=== PATIENT | female | born 1935 | race Caucasian/White ===

== ENCOUNTER 2024-11-21 01:16 | Emergency (ER) | payer BC, OTHER ==
[2024-11-21] MEDS ORDERED: PROMETHAZINE 25 MG TABLET ONE (03:13)
[2024-11-21] MEDS ORDERED: HYDROCODONE/APAP 5/325 MG TAB ONE (03:14)
--- NOTE | 2024-11-21 05:45 | ER ---
Nurse's Notes [facility] Name: Irina Stringer Age: 88 yrs Sex: Female : 1935 Arrival Date: 11/21/2024 Time: 01:16 Bed 14 Private MD: Diagnosis: Left distal radius fracture without displacement, acute fall at home, right buttock and back contusion Presentation: 11/21 01:20 Chief complaint: EMS states: patient fell trying to run from a bat. Coronavirus screen: kj2 Client denies travel out of the [place] in the last 14 days. Ebola Screen: No symptoms or risks identified at this time. Initial Sepsis Screen: Does the patient meet any 2 criteria? No. Patient's initial sepsis screen is negative. Does the patient have a suspected source of infection? No. Patient's initial sepsis screen is negative. Risk Assessment: Do you want to hurt yourself or someone else? Patient reports no desire to harm self or others. Onset of symptoms was November 21, 2024. 01:20 Method Of Arrival: EMS: [facility] kj2 01:20 Acuity: SABRINA 3 kj2 Triage Assessment: 01:20 General: Appears in no apparent distress. uncomfortable, Behavior is calm, cooperative. kj2 Pain: Complains of pain in left wrist, right hip Pain currently is 7 out of 10 on a pain scale. Neuro: Level of Consciousness is awake, alert, Oriented to person, place, time, situation. Cardiovascular: Patient's skin is warm and dry. Respiratory: Airway is patent Respiratory effort is unlabored. GI: No signs and/or symptoms were reported involving the gastrointestinal system. : No signs and/or symptoms were reported regarding the genitourinary system. Historical: - Allergies: 01:20 Cipro; kj2 - PMHx: 01:20 Congestive heart failure; Hypertensive disorder; kj2 - Immunization history:: Adult Immunizations unknown. - Infectious Disease History:: Denies. - Social history:: Smoking status: Patient denies any tobacco usage or history of. - Family history:: not pertinent. Screenin:20 [facility] ED Fall Risk Assessment (Adult) History of falling in the last 3 months, kj2 including since admission Yes- single mechanical fall (1 pt) Confusion or Disorientation No (0 pts) Intoxicated or Sedated No (0 pts) Impaired Gait Yes (1 pt) Mobility Assist Device Used No (0 pt) Altered Elimination No (0 pt) Score/Fall Risk Level 0 - 2 = Low Risk Maintained a safe environment, Hourly rounding (assess needs \T\ fall precautionary measures) done. Abuse screen: Denies threats or abuse. Denies injuries from another. Nutritional screening: No deficits noted. Tuberculosis screening: No symptoms or risk factors identified. Assessment: 01:20 General: see triage assessment. kj2 02:30 Reassessment: Patient appears in no apparent distress at this time. Patient and/or kj2 family updated on plan of care and expected duration. Pain level reassessed. Patient is alert, oriented x 3, equal unlabored respirations, skin warm/dry/pink. 03:30 Reassessment: Patient appears in no apparent distress at this time. Patient and/or kj2 family updated on plan of care and expected duration. Pain level reassessed. Patient is alert, oriented x 3, equal unlabored respirations, skin warm/dry/pink. 04:30 Reassessment: Patient appears in no apparent distress at this time. Patient and/or kj2 family updated on plan of care and expected duration. Pain level reassessed. Patient is alert, oriented x 3, equal unlabored respirations, skin warm/dry/pink. 06:01 Reassessment: Patient appears in no apparent distress at this time. Patient and/or kj2 family updated on plan of care and expected duration. Pain level reassessed. Patient is alert, oriented x 3, equal unlabored respirations, skin warm/dry/pink. Vital Signs: 01:20 BP 150 / 55; Pulse 79; Resp 18; Pulse Ox 100% ; Weight 70.76 kg; Height 5 ft. 3 in. ; kj2 02:29 BP 133 / 54; Pulse 75; Resp 18; Temp 97.9; Pulse Ox 95% ; kj2 03:30 BP 136 / 56; Pulse 72; Resp 18; Pulse Ox 100% on R/A; kj2 04:30 BP 138 / 62; Pulse 70; Resp 18; Pulse Ox 100% on R/A; kj2 05:45 BP 130 / 60; Pulse 68; Resp 18; Pulse Ox 100% ; kj2 01:20 Body Mass Index 27.63 (70.76 kg, 160.02 cm) kj2 [place] Coma Score: 19:08 Eye Response: spontaneous(4). Motor Response: obeys commands(6). Verbal Response: sp4 oriented(5). Total: 15. ED Course: 01:20 Arm band placed on Patient placed in an exam room, on a stretcher. kj2 01:20 Patient has correct armband on for positive identification. Placed in gown. Bed in low kj2 position. Call light in reach. Provided Education on: call light. 01:28 Patient arrived in ED. ha1 02:14 Digna Mckinnon, RN is Primary Nurse. kj2 02:23 Triage completed. kj2 02:30 Assisted to bedside commode. kj2 02:56 Heri Messina MD is Attending Physician. sp4 04:09 Hand Left 3 View XRAY In Process Unspecified. EDMS 04:09 Forearm Right XRAY In Process Unspecified. EDMS 04:09 Pelvis XRAY In Process Unspecified. EDMS 04:09 Femur Right XRAY In Process Unspecified. EDMS 05:42 Sukumar Dennis MD is Referral Physician. sp4 06:05 No provider procedures requiring assistance completed. Patient did not have IV access kj2 during this emergency room visit. Administered Medications: 03:19 Drug: HYDROcodone-acetaminophen PO 5 mg-325 mg 2 tabs PO once Route: PO; kj2 06:06 Follow up: Response: No adverse reaction kj2 06:06 Follow up: Response: No adverse reaction kj2 03:19 Drug: Promethazine PO 25 mg PO once Route: PO; kj2 06:06 Follow up: Response: No adverse reaction kj2 Medication: 02:28 VIS not applicable for this client. kj2 Outcome: 05:44 Discharge ordered by . sp4 06:05 Discharged to home ambulatory, kj2 06:05 Condition: stable 06:05 Discharge instructions given to patient, Instructed on discharge instructions, follow up and referral plans. Demonstrated understanding of instructions, follow-up care, 06:44 Patient left the ED. kj2 Signatures: Dispatcher [employer] Dayanna Mosquera RN RN ha1 Heri Messina MD MD sp4 Digna Mckinnon RN RN kj2
--- NOTE | 2024-11-21 05:45 | EDPHYS ---
Physician Documentation [facility] Name: Irina Stringer Age: 88 yrs Sex: Female : 1935 Arrival Date: 11/21/2024 Time: 01:16 Bed 14 Private MD: ED Physician Heri Messina HPI: 11/21 02:56 This 88 yrs old Female presents to ER via EMS with complaints of Fall Injury. sp4 19:08 88-year-old female presents with complaint of acute fall and injury to the left wrist. sp4 Also complains of contusion to the right buttock . Historical: - Allergies: 01:20 Cipro; kj2 - PMHx: 01:20 Congestive heart failure; Hypertensive disorder; kj2 - Immunization history:: Adult Immunizations unknown. - Infectious Disease History:: Denies. - Social history:: Smoking status: Patient denies any tobacco usage or history of. - Family history:: not pertinent. ROS: 19:08 Constitutional: Negative for fever, chills, and weight loss, positive for acute fall, sp4 positive for left wrist pain and right buttock pain 19:08 All other systems are negative, Exam: 19:08 Constitutional: This is a well developed, well nourished patient who is awake, alert, sp4 and in no acute distress. Head/Face: Normocephalic, atraumatic. Eyes: Pupils equal round and reactive to light, extra-ocular motions intact. Lids and lashes normal. Conjunctiva and sclera are not injected. Cornea within normal limits. Periorbital areas with no swelling, redness, or edema. ENT: Nares patent. No nasal discharge, no septal abnormalities noted. Tympanic membranes are normal and external auditory canals are clear. Oropharynx with no redness, swelling, or masses, exudates, or evidence of obstruction, uvula midline. Mucous membranes moist. Neck: Trachea midline, no thyromegaly or masses palpated, and no cervical lymphadenopathy. Supple, full range of motion without nuchal rigidity, or vertebral point tenderness. Chest/axilla: Normal chest wall appearance and motion. Nontender with no deformity. No lesions are appreciated. Cardiovascular: Regular rate and rhythm with a normal S1 and S2. No gallops, murmurs, or rubs. Normal PMI, no JVD. No pulse deficits. Respiratory: Lungs have equal breath sounds bilaterally, clear to auscultation and percussion. No rales, rhonchi or wheezes noted. No increased work of breathing, no retractions or nasal flaring. Abdomen/GI: Soft, with normal bowel sounds. No distension or tympany. No guarding or rebound. No evidence of tenderness throughout. Back: No spinal tenderness. No costovertebral tenderness. Skin: Warm, dry with normal turgor. Normal color with no rashes, no lesions, and no evidence of cellulitis. MS/ Extremity: Pulses equal, no cyanosis. Neurovascular intact. Full, normal range of motion. Positive for left wrist swelling and discoloration without deformity Neuro: Awake and alert, GCS 15, oriented to person, place, time, and situation. Cranial nerves II-XII grossly intact. Motor strength 5/5 in all extremities. Sensory grossly intact. Psych: Awake, alert, with orientation to person, place and time. Behavior, mood, and affect are within normal limits Vital Signs: 01:20 BP 150 / 55; Pulse 79; Resp 18; Pulse Ox 100% ; Weight 70.76 kg; Height 5 ft. 3 in. ; kj2 02:29 BP 133 / 54; Pulse 75; Resp 18; Temp 97.9; Pulse Ox 95% ; kj2 03:30 BP 136 / 56; Pulse 72; Resp 18; Pulse Ox 100% on R/A; kj2 04:30 BP 138 / 62; Pulse 70; Resp 18; Pulse Ox 100% on R/A; kj2 05:45 BP 130 / 60; Pulse 68; Resp 18; Pulse Ox 100% ; kj2 01:20 Body Mass Index 27.63 (70.76 kg, 160.02 cm) kj2 [place] Coma Score: 19:08 Eye Response: spontaneous(4). Motor Response: obeys commands(6). Verbal Response: sp4 oriented(5). Total: 15. Procedures: 05:41 Splinting: Splint applied to dorsal aspect of left forearm, left wrist, left hand and sp4 palmar aspect of left forearm using Orthoglass splint, applied by myself. Examined by me, post splint application: neurovascular intact, 2+ distal pulses palpable, brisk capillary refill noted, Patient tolerated well, Positive for sugar-tong splint application left forearm wrist and hand. MDM: 03:02 Medical Screening Exam initiated sp4 06:09 ED course: EXAM: XR Right Forearm, 2 Views CLINICAL HISTORY: The patient is 88 years sp4 old and is Female; Forearm pain. TECHNIQUE: Two views of the right forearm. COMPARISON: No relevant prior studies available. FINDINGS: Bones/joints: Unremarkable. No acute fracture. No dislocation. Soft tissues: Mild soft tissue swelling in the distal forearm. IMPRESSION: Mild soft tissue swelling in the distal forearm. Electronically signed by: Mylene Amanda MD 11/21/2024 06:02 AM. 19:08 Differential diagnosis: abrasion, contusion, fracture, sprain, strain. Data reviewed: sp4 vital signs, nurses notes, radiologic studies, plain films. 19:12 ED course: EXAM: XR Left Hand Complete, 3 or More Views CLINICAL HISTORY: The patient sp4 is 88 years old and is Female; Left hand pain. TECHNIQUE: Three views of the left hand. COMPARISON: No relevant prior studies available. FINDINGS: Bones/joints: Comminuted distal radius fracture, not significantly displaced. Bone demineralization. Degenerative changes in the basal joint. No dislocation. Soft tissues: Soft tissue swelling. No radiopaque foreign body. IMPRESSION: Comminuted distal radius fracture, not significantly displaced. Electronically signed by: Mylene Amanda MD. ED course: CLINICAL HISTORY: The patient is 88 years old and is Female; Right femur pain. TECHNIQUE: Two views of the right femur. COMPARISON: No relevant prior studies available. FINDINGS: Bones/joints: No acute femur fracture visualized. Degenerative changes in the knee. No dislocation. Soft tissues: Unremarkable. IMPRESSION: No acute femur fracture visualized. Electronically signed by: Mylene Amanda MD . ED course: CLINICAL HISTORY: The patient is 88 years old and is Female; Forearm pain. TECHNIQUE: Two views of the right forearm. COMPARISON: No relevant prior studies available. FINDINGS: Bones/joints: Unremarkable. No acute fracture. No dislocation. Soft tissues: Mild soft tissue swelling in the distal forearm. IMPRESSION: Mild soft tissue swelling in the distal forearm. Electronically signed by: Mylene Amanda MD . ED course: CLINICAL HISTORY: The patient is 88 years old and is Female; Fall, hip pain. TECHNIQUE: Single frontal view of the pelvis. COMPARISON: No relevant prior studies available. FINDINGS: Bones/joints: Degenerative changes in the left hip. Lower lumbar scoliosis versus positioning artifact. No acute fracture. No dislocation. Soft tissues: Unremarkable. IMPRESSION: Degenerative changes in the left hip. Electronically signed by: Mylene Amanda MD. 11/21 03:01 Order name: Hand Left 3 View XRAY; Complete Time: 19:11 sp4 11/21 03:02 Order name: Forearm Right XRAY; Complete Time: 19:11 sp4 11/21 03:02 Order name: Pelvis XRAY; Complete Time: 19:11 sp4 11/21 03:02 Order name: Femur Right XRAY; Complete Time: 19:11 sp4 11/21 05:47 Order name: Sling; Complete Time: 06:06 sp4 11/21 05:47 Order name: Splint - Sugar Tong - Forearm: applied by MD; Complete Time: 06:06 sp4 Administered Medications: 03:19 Drug: HYDROcodone-acetaminophen PO 5 mg-325 mg 2 tabs PO once Route: PO; kj2 06:06 Follow up: Response: No adverse reaction kj2 06:06 Follow up: Response: No adverse reaction kj2 03:19 Drug: Promethazine PO 25 mg PO once Route: PO; kj2 06:06 Follow up: Response: No adverse reaction kj2 Disposition Summary: 11/21/24 05:44 Discharge Ordered Notes: Please see Orthopedist in 7 days for evaluation of your wrist Location: Home sp4 Problem: new sp4 Symptoms: have improved sp4 Condition: Stable sp4 Diagnosis - Left distal radius fracture without displacement, acute fall at home, right buttock sp4 and back contusion Followup: sp4 - With: Sukumar Dennis MD - When: 7 - 10 days - Reason: Recheck today's complaints Discharge Instructions: - Discharge Summary Sheet sp4 - Radial Fracture Rehab sp4 Forms: - Patient Portal Instructions sp4 Prescriptions: - acetaminophen-codeine 300-60 mg Oral tablet - take 1 tablet ORAL route every 6 hours PRN pain; 20 tablet; Refills: 0, Product sp4 Selection Permitted Signatures: Dispatcher [employer] EDHeri Dozier MD MD sp4 Digna Mckinnon RN RN kj2 Corrections: (The following items were deleted from the chart) 03:02 03:02 Hand Left 3 View+RAD.RAD.BRZ ordered. EDMS EDMS 03:02 03:02 Forearm Right+RAD.RAD.BRZ ordered. EDMS EDMS 03:03 03:03 Pelvis+RAD.RAD.BRZ ordered. EDMS EDMS
--- NOTE | 2024-11-21 06:22 | RAD REPORT ---
EXAM: XR Pelvis, 1 or 2 Views CLINICAL HISTORY: The patient is 88 years old and is Female; Fall, hip pain. TECHNIQUE: Single frontal view of the pelvis. COMPARISON: No relevant prior studies available. FINDINGS: Bones/joints: Degenerative changes in the left hip. Lower lumbar scoliosis versus positioning artifact. No acute fracture. No dislocation. Soft tissues: Unremarkable. IMPRESSION: Degenerative changes in the left hip. Electronically signed by: Mylene Amanda MD 11/21/2024 06:11 AM [facility] [place] Due to temporary technical issues with the PACS/[employer] reporting system, reports are being josé d by the in-house radiologist without review as a courtesy to ensure prompt reporting the interpreting radiologist is fully responsible for the content of the report. Transcribed Date/Time: 11/21/2024 6:21 AM
--- NOTE | 2024-11-21 06:22 | RAD REPORT ---
EXAM: XR Right Femur, 2 Views CLINICAL HISTORY: The patient is 88 years old and is Female; Right femur pain. TECHNIQUE: Two views of the right femur. COMPARISON: No relevant prior studies available. FINDINGS: Bones/joints: No acute femur fracture visualized. Degenerative changes in the knee. No dislocation. Soft tissues: Unremarkable. IMPRESSION: No acute femur fracture visualized. Electronically signed by: Mylene Amanda MD 11/21/2024 06:[address] [facility] [place] Due to temporary technical issues with the PACS/[employer] reporting system, reports are being josé d by the in-house radiologist without review as a courtesy to ensure prompt reporting the interpreting radiologist is fully responsible for the content of the report. Transcribed Date/Time: 11/21/2024 6:21 AM
--- NOTE | 2024-11-21 06:22 | RAD REPORT ---
EXAM: XR Right Forearm, 2 Views CLINICAL HISTORY: The patient is 88 years old and is Female; Forearm pain. TECHNIQUE: Two views of the right forearm. COMPARISON: No relevant prior studies available. FINDINGS: Bones/joints: Unremarkable. No acute fracture. No dislocation. Soft tissues: Mild soft tissue swelling in the distal forearm. IMPRESSION: Mild soft tissue swelling in the distal forearm. Electronically signed by: Mylene Amanda MD 11/21/2024 06:[address] [facility] [place] Due to temporary technical issues with the PACS/[employer] reporting system, reports are being josé d by the in-house radiologist without review as a courtesy to ensure prompt reporting the interpreting radiologist is fully responsible for the content of the report. Transcribed Date/Time: 11/21/2024 6:22 AM
--- NOTE | 2024-11-21 06:23 | RAD REPORT ---
EXAM: XR Left Hand Complete, 3 or More Views CLINICAL HISTORY: The patient is 88 years old and is Female; Left hand pain. TECHNIQUE: Three views of the left hand. COMPARISON: No relevant prior studies available. FINDINGS: Bones/joints: Comminuted distal radius fracture, not significantly displaced. Bone demineralization. Degenerative changes in the basal joint. No dislocation. Soft tissues: Soft tissue swelling. No radiopaque foreign body. IMPRESSION: Comminuted distal radius fracture, not significantly displaced. Electronically signed by: Mylene Amanda MD 11/21/2024 06:10 AM [facility] [place] Due to temporary technical issues with the PACS/[employer] reporting system, reports are being josé d by the in-house radiologist without review as a courtesy to ensure prompt reporting the interpreting radiologist is fully responsible for the content of the report. Transcribed Date/Time: 11/21/2024 6:22 AM
[2024-11-21 06:58] VITALS: TEMP 97.9
[2024-11-21 07:00] VITALS: O2SAT 100
[2024-11-21 07:03] VITALS: BP 130/60
== END 2024-11-21 06:44 | disposition home or self-care (01) ==
LOC: ER 01:16
PROC: 2W3DX1Z Immobilization of Left Lower Arm using Splint (ICD-10-PCS; principal; 2024-11-21)
DX: S52.502A Unspecified fracture of the lower end of left radius, initial encounter for closed fracture (principal); S30.0XXA Contusion of lower back and pelvis, initial encounter; W18.30XA Fall on same level, unspecified, initial encounter; Y92.009 Unspecified place in unspecified non-institutional (private) residence as the place of occurrence of the external cause
CPT/HCPCS: 72170; 99284; Q0169

== ENCOUNTER 2024-11-21 17:51 | Emergency (ER) | payer BC ==
[2024-11-21] MEDS ORDERED: ONDANSETRON 4 MG/2 ML VIAL ONE (18:21)
[2024-11-21] MEDS ORDERED: MORPHINE 2 MG/ML SYR ONE (18:21)
[2024-11-21 18:24] LABS: Absolute Eosinophils 0.1 K/uL (0-0.5); Absolute Lymphocytes (CBC) 1.1 K/uL (0.7-4.9); Absolute Monocytes 0.6 K/uL (0.1-1.3); Absolute Neutrophil 5.1 K/uL (1.8-8.0); Basophils % 0.4 % (0-1.3); Eosinophils % 1.1 % (0-4.4); Hematocrit 36.9 % (36.0-45.0); Hemoglobin 12.5 g/dL (12.0-15.0); Lymphocytes % 16.1 % (15.3-44.8); MCH 29.5 pg (27.0-35.0); MCHC 33.8 g/dL (32.0-36.0); MCV 87.2 fL (80-100); MPV 7.4 fL (7.6-11.3); Monocytes % 8.4 % (3.3-12.3); Platelets 207 thou/uL (152-406); RBC Red Blood Cell Count 4.23 M/uL (3.86-4.86); Red Cell Distribution Width 13.8 % (12.1-15.2)
[2024-11-21 18:25] LABS: PT Prothrombin Time 12.5 SECONDS (9.4-12.5); Protime INR 1.12
[2024-11-21 18:43] LABS: Albumin 3.2 g/dL (3.4-5.0); Albumin/Globulin Ratio 1.1 (1.1-1.8); Anion Gap 10.5 mEq/L (5.0-15.0); Bilirubin Direct 0.4 mg/dL (0-0.2); Bilirubin Indirect, Calculated 0.6 mg/dL (0.2-0.8); Globulin 2.9 g/dL (2.3-3.5); Magnesium 1.9 mg/dL (1.6-2.4); Potassium 3.5 mEq/L (3.5-5.1); Protein, Total 6.1 g/dL (6.4-8.2); Troponin High Sensitivity 8.9 pg/mL (<58.9)
--- NOTE | 2024-11-21 19:13 | RAD REPORT ---
Procedure: Chest Single View HISTORY: Chest pain COMPARISON: none FINDINGS: The lungs appear clear of acute infiltrate. No significant pleural effusion noted. The heart is mildly enlarged. Post surgical changes involve the chest IMPRESSION: No acute abnormality is displayed.
--- NOTE | 2024-11-21 20:13 | RAD REPORT ---
EXAM: Chest Abdomen Pelvis W Cont CLINICAL INDICATION: Chest and abdominal pain TECHNIQUE: CT chest, abdomen and pelvis was performed, with 100 cc Isovue-300 IV contrast, as per de partment protocol. Axial, sagittal and coronal reconstructions were obtained. One or more of the following dose reduction techniques were used: Automated exposure control, adjustment of the mA and/o r kV according to the patient size, and/or iterative reconstruction. Unless otherwise specified, incidental findings do not require dedicated imaging follow-up. [id number]. Oral contrast not given. This limits evaluation of the bowel. COMPARISON: None FINDINGS: The lungs are clear. No mediastinal or hilar lymphadenopathy. Small intimal flap suspected posterior ascending thoracic aorta just below the aortic arch. Adjacent low density probably small amount of intramural hematoma. No pleural effusion.. No pericardial effusion Cholecystectomy. Mild to moderate dilatation of the intrahepatic and extrahepatic biliary tree. The liver otherwise appears unremarkable. Spleen, pancreas, and adrenals appear unremarkable. Bilateral. There is no evidence of diverticulitis No adnexal mass Scoliosis involves the spine. Spondylosis lumbar spine. IMPRESSION: Small intimal flap suspected posterior ascending thoracic aorta just below the aortic arch. Adjacent low density probably small amount of intramural hematoma. Mild to moderate dilatation of the intrahepatic and extrahepatic biliary tree. In an elderly patient status post cholecystectomy this often is physiologic. This should be correlated clinically and with appropriate lab values
--- NOTE | 2024-11-21 21:07 | EDPHYS ---
Physician Documentation [facility] Name: Irina Stringer Age: 88 yrs Sex: Female : 1935 Arrival Date: 11/21/2024 Time: 17:51 Bed 2 Private MD: ED Physician Don Villegas HPI: 11/21 18:10 This 88 yrs old Female presents to ER via EMS with complaints of Chest Pain > 30 y/o. cp 18:10 The patient or guardian reports chest pain that is located primarily in the anterior cp chest wall, bilaterally below breast. 18:10 Onset: today. cp 18:10 The pain radiates to back. The chest pain is described as a pressure. Duration: The patient or guardian reports a single episode, that is still ongoing, but improving. 18:10 Patient returns to ED after being seen yesterday for fall and suffering fracture of cp left wrist from fall. Reports taking prescribed Tylenol with codeine for pain and shortly afterward having severe chest pain today. 19:00 Patient reports HX of aortic aneurysm repair surgery 3-4 years ago by physician at [facility]. Historical: - Allergies: 18:06 Cipro; ko1 - PMHx: 18:06 Congestive heart failure; Hypertensive disorder; ko1 - Immunization history:: Adult Immunizations unknown. - Infectious Disease History:: Denies. - Social history:: Smoking status: Patient denies any tobacco usage or history of. ROS: 18:10 Cardiovascular: Positive for chest pain, cp 18:10 Constitutional: Negative for body aches, chills, fever, poor PO intake, cp 18:10 Eyes: Negative for injury, pain, redness, and discharge, cp 18:10 Respiratory: Negative for cough, shortness of breath, wheezing, 18:10 Abdomen/GI: Positive for abdominal pain, of the upper abdomen, Negative for vomiting, diarrhea, constipation, Exam: 18:12 ECG was reviewed by the Attending Physician. cp 18:15 Constitutional: The patient appears in no acute distress, alert, awake, cp non-diaphoretic, non-toxic, well developed, well nourished, 18:15 Head/Face: Normocephalic, atraumatic. cp 18:15 Eyes: Periorbital structures: appear normal, Conjunctiva: normal, no exudate, no injection, Sclera: no appreciated abnormality, Lids and lashes: appear normal, bilaterally, 18:15 ENT: External ear(s): are unremarkable, Nose: is normal, Mouth: Lips: moist, Oral mucosa: moist, Posterior pharynx: Airway: no evidence of obstruction, patent, 18:15 Chest/axilla: Inspection: normal, 18:15 Cardiovascular: Rate: normal, Rhythm: regular, Edema: is not appreciated, JVD: is not appreciated, 18:15 Respiratory: the patient does not display signs of respiratory distress, Respirations: normal, no use of accessory muscles, no retractions, labored breathing, is not present, Breath sounds: are clear throughout, no decreased breath sounds, no stridor, no wheezing, 18:15 Abdomen/GI: Inspection: abdomen appears normal, Bowel sounds: active, all quadrants, Palpation: soft, in all quadrants, mild abdominal tenderness, in the epigastric area, rebound tenderness, is not appreciated, involuntary guarding, is not appreciated, 18:15 Back: CVA tenderness, is absent, 18:15 Neuro: Orientation: to person, place \T\ time. Mentation: is normal, Cerebellar function: is grossly normal, Motor: moves all fours, strength is normal, Sensation: is normal, Vital Signs: 18:03 BP 134 / 59; Pulse 86; Resp 16; Temp 98; Pulse Ox 99% on R/A; ko1 18:15 BP 147 / 59; Pulse 84; Resp 16; Pulse Ox 96% on R/A; db 21:22 BP 146 / 66; Pulse 83; Resp 16 S; Pulse Ox 95% on R/A; lg3 22:06 Weight 70.76 kg; rv1 23:14 BP 118 / 51; Pulse 80; Resp 18; Pulse Ox 93% on R/A; ay 11/22 00:10 BP 167 / 80; Pulse 94; Resp 17; Pulse Ox 96% on R/A; ay 00:53 BP 155 / 66; Pulse 82; Resp 17 S; Pulse Ox 95% on R/A; lg3 01:13 BP 144 / 62; Pulse 96; Resp 18; Pulse Ox 96% on R/A; ay Amol Coma Score: 11/21 19:37 Eye Response: spontaneous(4). Motor Response: obeys commands(6). Verbal Response: ay oriented(5). Total: 15. MDM: 18:03 Medical Screening Exam initiated cp 19:00 Differential diagnosis: abnormal EKG, acute myocardial infarction, esophagitis, cp pancreatitis, peptic ulcer disease, pneumonia, pneumothorax, pulmonary embolus, stable angina, thoracic aortic disection, unstable angina, choledocholithiasis. 21:10 The patient was not given aspirin in the Emergency Department. Data reviewed: vital cp signs, nurses notes, lab test result(s), EKG, radiologic studies, CT scan, plain films, I have discussed the patient's presentation/case with the attending Emergency Department Physician; and as a result, I will transfer patient. I considered the following discharge prescriptions or medication management in the emergency department Medications were administered in the Emergency Department. See MAR. 21:10 Independent interpretation of the following test(s) in the Emergency Department EKG: cp See my EKG interpretation above. 21:10 Care significantly affected by the following chronic conditions: Hypertension, cp Congestive Heart Failure. Counseling: I had a detailed discussion with the patient and/or guardian regarding the historical points, exam findings, and any diagnostic results supporting the discharge/admit diagnosis, the need to transfer to another facility, [facility] does not immediately have the required specialist. 11/22 00:15 Management of patient was discussed with the following: Quality Checker: DR Dowell, cp cardiothoracic surgery \[facility] who will accept transfer after discussion of findings on CT. Requests patient to be started on Esmolol for blood pressure control. 11/21 18:10 Order name: Basic Metabolic Panel; Complete Time: 18:51 11/21 18:51 Interpretation: Normal except: NA 135; CRE 0.44. 11/21 18:10 Order name: CBC with Diff; Complete Time: 18:51 11/21 18:51 Interpretation: Normal except: MPV 7.4; RM% 74.0. 11/21 18:10 Order name: LFT's; Complete Time: 18:51 11/21 18:51 Interpretation: Normal except: AST 146; ALT 68; ALK 29; BILID 0.4; TP 6.1; ALB 3.2. 11/21 18:10 Order name: Magnesium; Complete Time: 18:51 11/21 18:10 Order name: NT PRO-BNP; Complete Time: 18:51 cp 11/21 18:10 Order name: PT-INR; Complete Time: 18:51 cp 11/21 18:10 Order name: Troponin HS; Complete Time: 18:51 cp 11/21 20:50 Order name: Lipase; Complete Time: 22:35 cp 11/21 22:35 Interpretation: Reviewed. cp 11/21 20:50 Order name: Troponin High Sensitivity; Complete Time: 22:35 cp 11/21 18:10 Order name: XRAY Chest (1 view); Complete Time: 19:43 cp 11/21 19:43 Interpretation: Report review. cp 11/21 18:54 Order name: CT Chest, Abdomen, Pelvis - W/Contrast; Complete Time: 20:48 cp 11/21 20:48 Interpretation: Report reviewed. cp 11/21 18:10 Order name: Cardiac monitoring; Complete Time: 18:13 cp 11/21 18:10 Order name: EKG - Nurse/Tech; Complete Time: 18:13 cp 11/21 18:10 Order name: IV Saline Lock; Complete Time: 18:14 cp 11/21 18:10 Order name: Labs collected and sent; Complete Time: 18:14 cp 11/21 18:10 Order name: O2 Per Protocol; Complete Time: 18:14 cp 11/21 18:10 Order name: O2 Sat Monitoring; Complete Time: 18:14 cp 11/22 00:11 Order name: Misc. Order: target systolic pressure below 140 cp EC/05 18:12 Rate is 83 beats/min. Rhythm is regular. SC interval is prolonged at 202 msec. QRS cp interval is normal. QT interval is normal. T waves are Inverted in lead aVR. Interpreted by me. Reviewed by me. Administered Medications: 18:20 Drug: morphine IVP or IV 2 mg IVP once over 4 mins Route: IVP; Infused Over: 4 mins; db Site: right antecubital; 21:47 Follow up: Response: No adverse reaction ay 18:20 Drug: Ondansetron IVP 4 mg IVP once; over 2 minutes Route: IVP; Site: right antecubital;db 21:47 Follow up: Response: No adverse reaction ay 21:47 Drug: hydrALAZINE IVP 10 mg IVP once; if systolic pressure above 140 Route: IVP; Site: ay right forearm; 23:17 Follow up: Response: No adverse reaction ay 11/22 01:16 Follow up: Response: No adverse reaction ay 00:31 CANCELLED (Physician Discretion): [id number] mcg/kg/min IV at calculated rate See cp Administration Instructions; (Standard concentration 2500 mg / 250 mL D5W); Recommended max rate 300 mcg/kg/min; Titrate 25 mcg/kg/min as often as every 5 minutes to achieve goal (see titration policy); Goal parameter HR less than 100 bpm. 01:18 CANCELLED (Patient Refused): [id number] mg/hr IV at calculated rate See cp Administration Instructions; (Standard concentration 25 mg / 250 mL NS); Recommended max rate 15 mg/hr; Titrate 2.5 mg/hr as often as every 15 minutes to achieve goal (see titration policy); Goal parameter SBP less than 160 mmHg 01:37 Drug: Metoprolol PO 25 mg PO once Route: PO; ay 01:59 Follow up: Response: No adverse reaction ay 01:45 CANCELLED (Physician Discretion): [id number] mg PO once cp 01:53 Not Given (Patient Refused): [id number] mg PO once ay 01:54 Drug: Acetaminophen PO 325 mg PO once {Note: pt stated that 1000mg was too much, then ay 650 mg was too much but finally settled on 325 mg .} Route: PO; :59 Follow up: Response: No adverse reaction ay Disposition: 02:18 Co-signature as Attending Physician, Don Villegas MD I reviewed the patient's care rt provided by the Advanced Practice Provider and agree with the diagnosis and treatment plan. 21:48 Critical Care:. cp Disposition Summary: 11/21/24 21:06 Transfer Ordered Notes: Reason: Higher level of care cp Condition: Stable cp Problem: new cp Symptoms: have improved cp Transfer Location: [facility](11/22/24 00:11) cp Accepting Physician: DR Dowell(11/22/24 02:03) ay Diagnosis - Chest pain, unspecified cp - Aortic Dissection cp - Other acute pancreatitis without necrosis or infection cp Forms: - Medication Reconciliation Form cp - SBAR form cp Critical care time excluding procedures: 21:48 Critical care time: Bedside Care: 5 minutes, Consultation: 30 minutes, Family cp Intervention: 10 minutes. Total time: 45 minutes Signatures: Dispatcher [employer] Magdy Barger PA PA cp Oliver, Ame, RN RN ko1 Kristine Kessler RN RN db Don Villegas MD MD rt Bi Bardales RN RN ay Corrections: (The following items were deleted from the chart) 11/21 18:11 18:11 BASIC METABOLIC PANEL+C.LAB.BRZ ordered. EDID EDMS 18:11 18:11 CBC+H.LAB.BRZ ordered. EDID EDMS 18:11 18:11 HEPATIC FUNCTION+C.LAB.BRZ ordered. EDID EDMS 18:11 18:11 MAGNESIUM+C.LAB.BRZ ordered. EDID EDMS 18:11 18:11 PROBNP+C.LAB.BRZ ordered. EDID EDMS 18:11 18:11 PROTIME (+INR)+COAG.LAB.BRZ ordered. EDID EDMS 18:11 18:11 Troponin High Sensitivity+C.LAB.BRZ ordered. EDID EDMS 18:11 18:11 Chest Single View+RAD.RAD.BRZ ordered. [facility] EDID 22:37 21:06 Doctor cp cp 11/22 00:11 11/21 21:06 [facility] cp cp 11/22 00:11 11/21 22:37 Doctor cp cp 11/22 00:31 00:11 Esmolol IV 50 mcg/kg/min IV at calculated rate See Administration Instructions; cp (Standard concentration 2500 mg / 250 mL D5W); Recommended max rate 300 mcg/kg/min; Titrate 25 mcg/kg/min as often as every 5 minutes to achieve goal (see titration policy); Goal parameter HR less than 100 bpm. ordered. cp :18 00:36 niCARdipine IV 5 mg/hr IV at calculated rate See Administration Instructions; cp (Standard concentration 25 mg / 250 mL NS); Recommended max rate 15 mg/hr; Titrate 2.5 mg/hr as often as every 15 minutes to achieve goal (see titration policy); Goal parameter SBP less than 160 mmHg ordered. cp 01:20 00:11 Doctor cp cp 01:45 01:41 Acetaminophen PO 1000 mg PO once ordered. cp cp 02:03 01:20 DR Magalys peña 21:41 11/21 22:40 Data reviewed: vital signs, nurses notes, lab test result(s), EKG, cp radiologic studies, CT scan, plain films, I have discussed the patient's presentation/case with the attending Emergency Department Physician; and as a result, I will transfer patient, cp 11/22 20:11/21 22:40 The patient was not given aspirin in the Emergency Department. cp cp 11/22 20:11/21:40 I considered the following discharge prescriptions or medication management cp in the emergency department Medications were administered in the Emergency Department. See MAR cp
--- NOTE | 2024-11-21 21:07 | ER ---
Nurse's Notes [facility] Name: Irina Stringer Age: 88 yrs Sex: Female : 1935 Arrival Date: 11/21/2024 Time: 17:51 Bed 2 Private MD: Diagnosis: Chest pain, unspecified;Aortic Dissection;Other acute pancreatitis without necrosis or infection Presentation: 11/21 18:03 Chief complaint: EMS states: patient was here yesterday for a broken arm, received ko1 tylenol #3 for pain, took it today and started having chest pain and her blood pressure dropped down into the 90's systolic. Coronavirus screen: At this time, the client does not indicate any symptoms associated with coronavirus-19. Ebola Screen: No symptoms or risks identified at this time. Initial Sepsis Screen: Does the patient meet any 2 criteria? No. Patient's initial sepsis screen is negative. Does the patient have a suspected source of infection? No. Patient's initial sepsis screen is negative. Risk Assessment: Do you want to hurt yourself or someone else? Patient reports no desire to harm self or others. Onset of symptoms was November 21, 2024. Care prior to arrival: IV initiated. 20 GA, in the right forearm. 18:03 Method Of Arrival: EMS: [facility] ko1 18:03 Acuity: SABRINA 3 ko1 Triage Assessment: 18:06 General: Appears in no apparent distress. Behavior is calm, cooperative, appropriate ko1 for age. Pain: Complains of pain in chest. EENT: No deficits noted. No signs and/or symptoms were reported regarding the EENT system. Neuro: No deficits noted. Cardiovascular: Reports chest pain. Respiratory: No deficits noted. GI: No deficits noted. No signs and/or symptoms were reported involving the gastrointestinal system. : No deficits noted. No signs and/or symptoms were reported regarding the genitourinary system. Derm: No deficits noted. No signs and/or symptoms reported regarding the dermatologic system. Musculoskeletal: No deficits noted. No signs and/or symptoms reported regarding the musculoskeletal system. Historical: - Allergies: 18:06 Cipro; ko1 - PMHx: 18:06 Congestive heart failure; Hypertensive disorder; ko1 - Immunization history:: Adult Immunizations unknown. - Infectious Disease History:: Denies. - Social history:: Smoking status: Patient denies any tobacco usage or history of. Screenin:07 [facility] ED Fall Risk Assessment (Adult) History of falling in the last 3 months, ko1 including since admission Yes- single mechanical fall (1 pt) Confusion or Disorientation No (0 pts) Intoxicated or Sedated No (0 pts) Impaired Gait No (0 pts) Mobility Assist Device Used No (0 pt) Altered Elimination No (0 pt) Score/Fall Risk Level 0 - 2 = Low Risk Oriented to surroundings, Maintained a safe environment, Educated pt \T\ family on fall prevention, incl call for assistance when getting out of bed, Assessed \T\ reinforced patient's understanding of fall precautions, Hourly rounding (assess needs \T\ fall precautionary measures) done. Abuse screen: Denies threats or abuse. Denies injuries from another. Nutritional screening: No deficits noted. Tuberculosis screening: No symptoms or risk factors identified. Assessment: 18:07 Reassessment: see triage note. Pain: Pain does not radiate. Pain began gradually. ko1 18:27 Reassessment: Patient appears in no apparent distress at this time. Patient and/or db family updated on plan of care and expected duration. Pain level reassessed. Patient is alert, oriented x 3, equal unlabored respirations, skin warm/dry/pink. General: Appears in no apparent distress. comfortable, Behavior is calm, cooperative. Neuro: Level of Consciousness is awake, alert, obeys commands, Oriented to person, place, time, situation. Musculoskeletal: Circulation, motion, and sensation intact. Capillary refill < 3 seconds, PATIENT ARRIVED WITH CAST AND SLING TO LEFT ARM. 19:37 General: Appears in no apparent distress. comfortable, Behavior is calm, cooperative. ay Pain: Complains of pain in chest Pain currently is 5 out of 10 on a pain scale. Neuro: Level of Consciousness is awake, alert, obeys commands, Oriented to person, place, time, situation. Cardiovascular: Capillary refill < 3 seconds. Respiratory: Airway is patent Respiratory effort is even, unlabored, Respiratory pattern is regular, symmetrical. GI: No signs and/or symptoms were reported involving the gastrointestinal system. : No signs and/or symptoms were reported regarding the genitourinary system. EENT: No signs and/or symptoms were reported regarding the EENT system. Musculoskeletal: Capillary refill < 3 seconds, left arm injury. Arm in splint. 23:13 Reassessment: Patient appears in no apparent distress at this time. Patient is alert, ay oriented x 3, equal unlabored respirations, skin warm/dry/pink. 11/22 02:01 Reassessment: pt picked up by [facility] en route [facility]. ay Vital Signs: 11/21 18:03 BP 134 / 59; Pulse 86; Resp 16; Temp 98; Pulse Ox 99% on R/A; ko1 18:15 BP 147 / 59; Pulse 84; Resp 16; Pulse Ox 96% on R/A; db 21:22 BP 146 / 66; Pulse 83; Resp 16 S; Pulse Ox 95% on R/A; lg3 22:06 Weight 70.76 kg; rv1 23:14 BP 118 / 51; Pulse 80; Resp 18; Pulse Ox 93% on R/A; ay 11/22 00:10 BP 167 / 80; Pulse 94; Resp 17; Pulse Ox 96% on R/A; ay 00:53 BP 155 / 66; Pulse 82; Resp 17 S; Pulse Ox 95% on R/A; lg3 01:13 BP 144 / 62; Pulse 96; Resp 18; Pulse Ox 96% on R/A; ay Amol Coma Score: 11/21 19:37 Eye Response: spontaneous(4). Motor Response: obeys commands(6). Verbal Response: ay oriented(5). Total: 15. ED Course: 18:00 Maintain EMS IV. Dressing intact. Good blood return noted. Site clean \T\ dry. Gauge \T\ db site: 20 G RAC. Flushed with 10 mL NS. 18:02 Patient arrived in ED. db 18:03 Magdy Sam PA is PHCP. cp 18:03 Magdy Tillman MD is Attending Physician. cp 18:06 Triage completed. ko1 18:06 Arm band placed on right wrist. Patient placed in an exam room, on a stretcher, on ko1 color television console monitor, on pulse oximetry, Patient notified of wait time. 18:07 Patient has correct armband on for positive identification. Allergy band placed. Bed in ko1 low position. Call light in reach. Side rails up X2. Provided Education on: labs, meds. Client placed on continuous cardiac and pulse oximetry monitoring. NIBP monitoring applied. bus monitor on. Door closed. Noise minimized. Lights dimmed. Warm blanket given. Pillow given. 18:07 Patient maintains SpO2 saturation greater than 95% on room air. ko1 18:13 Ame Marie, RN is Primary Nurse. ko1 18:14 Basic Metabolic Panel Sent. ko1 18:14 CBC with Diff Sent. ko1 18:14 LFT's Sent. ko1 18:14 Magnesium Sent. ko1 18:14 NT PRO-BNP Sent. ko1 18:14 PT-INR Sent. ko1 18:14 Troponin HS Sent. ko1 18:42 XRAY Chest (1 view) In Process Unspecified. EDMS 19:02 Don Villegas MD is Attending Physician. cp 19:44 CT Chest, Abdomen, Pelvis - W/Contrast In Process Unspecified. EDMS 21:13 Initiated transfer with Dianne at [facility]. rv1 21:35 Troponin High Sensitivity Sent. ay 21:35 Lipase Sent. ay 21:55 [facility] declined due to capacity. rv1 22:04 Initiated transfer with Renee at [facility]. rv1 22:23 [facility] declined due to capacity. rv1 23:42 Initiated transfer with Kalyani at [facility]. rv1 0106 00:05 Doc to Doc with [facility]. rv1 00:12 Doc to Doc with Hospitalist. rv1 00:24 Reconnected Magdy Page with [facility]. rv1 00:[address] Dowell to [facility] RM 911. rv1 01:00 Transfer delayed due to nurse needing to give medication. rv1 01:25 Julia with EMS gave 15 min ETA. rv1 02:00 No provider procedures requiring assistance completed. Patient transferred, IV remains ay in place. Administered Medications: 11/21 18:20 Drug: morphine IVP or IV 2 mg IVP once over 4 mins Route: IVP; Infused Over: 4 mins; db Site: right antecubital; 21:47 Follow up: Response: No adverse reaction ay 18:20 Drug: Ondansetron IVP 4 mg IVP once; over 2 minutes Route: IVP; Site: right antecubital;db 21:47 Follow up: Response: No adverse reaction ay 21:47 Drug: hydrALAZINE IVP 10 mg IVP once; if systolic pressure above 140 Route: IVP; Site: ay right forearm; 23:17 Follow up: Response: No adverse reaction ay 11/22 01:16 Follow up: Response: No adverse reaction ay 00:31 CANCELLED (Physician Discretion): mcg/kg/min IV at calculated rate See cp Administration Instructions; (Standard concentration 2500 mg / 250 mL D5W); Recommended max rate 300 mcg/kg/min; Titrate 25 mcg/kg/min as often as every 5 minutes to achieve goal (see titration policy); Goal parameter HR less than 100 bpm. 01:18 CANCELLED (Patient Refused): nicardipine5 mg/hr IV at calculated rate See cp Administration Instructions; (Standard concentration 25 mg / 250 mL NS); Recommended max rate 15 mg/hr; Titrate 2.5 mg/hr as often as every 15 minutes to achieve goal (see titration policy); Goal parameter SBP less than 160 mmHg 01:37 Drug: Metoprolol PO 25 mg PO once Route: PO; ay 01:59 Follow up: Response: No adverse reaction ay 01:45 CANCELLED (Physician Discretion): [id number] mg PO once cp 01:53 Not Given (Patient Refused): [id number] mg PO once ay 01:54 Drug: Acetaminophen PO 325 mg PO once {Note: pt stated that 1000mg was too much, then ay 650 mg was too much but finally settled on 325 mg .} Route: PO; 01:59 Follow up: Response: No adverse reaction ay Medication: 11/21 18:07 VIS not applicable for this client. ko1 Outcome: 21:06 ER care complete, transfer ordered by MD. michelle 11/22 02:00 Transferred by ground EMS to [facility], Condition: stable Instructed on the need for transfer, 02:03 Patient left the ED. ay Signatures: Dispatcher [employer] EDMS Magdy Sam PA PA cp Able, Lacie RN RAMESH [email or web address] Ame Marie RN RN ko1 Kristine Kessler RN RN db Villegas, Rebecca rv1 Bi Bardales RN RN ay Corrections: (The following items were deleted from the chart) 01:55 01:54 Acetaminophen PO 325 mg PO ay ay
[2024-11-21] MEDS ORDERED: HYDRALAZINE HCL 20 MG/ML VIAL ONE (21:37)
[2024-11-21 22:02] LABS: Troponin High Sensitivity 9.2 pg/mL (<58.9)
[2024-11-22] MEDS ORDERED: Nicardipine/NS 0 MG/0 ML KIT IV ONE (01:05)
[2024-11-22] MEDS ORDERED: METOPROLOL TAR 25 MG TAB ONE (01:26)
[2024-11-22] MEDS ORDERED: ACETAMINOPHEN 325 MG TABLET ONE (01:46)
[2024-11-22 02:07] VITALS: TEMP 98
[2024-11-22 02:18] VITALS: BP 144/62; O2SAT 96
--- NOTE | 2024-11-29 11:12 | EKG ---
Test Date: 2024-11-21 Test Time: 17:56:42 Pe Electrical Engineer: RONNI MEASUREMENT RESULTS: Intervals: Rate: 83 CT: 202 QRSD: 78 QT: 396 QTc: 465 Rowley: P: 72 CT: 202 QRS: 71 T: 56 INTERPRETIVE STATEMENTS: Normal sinus rhythm Normal ECG No previous ECG available for comparison Electronically Signed On 11-29-24 11:01:13 USER SUPPORT SPECIALIST by Terrell Jett
== END 2024-11-22 02:03 | disposition short-term general hospital (02) ==
LOC: ER 17:51
DX: I71.010 Dissection of ascending aorta (principal); R07.9 Chest pain, unspecified; K85.90 Acute pancreatitis without necrosis or infection, unspecified; I10 Essential (primary) hypertension; I50.9 Heart failure, unspecified
CPT/HCPCS: 36415; 71045; 71260; 74177; 80048; 80076; 83690; 83735; 83880; 84484; 85025; 85610; 93005; 99285; J0360; J2270; J2405; Q9967

== ENCOUNTER 2024-12-15 16:51 | Emergency (ER) | payer BC ==
[2024-12-15] MEDS ORDERED: LIDOCAINE 1% MPF 5 ML VIAL ONE (17:06)
[2024-12-15] MEDS ORDERED: ACETAMINOPHEN 325 MG TABLET ONE (17:06)
--- NOTE | 2024-12-15 18:29 | RAD REPORT ---
EXAM: CT brain without contrast HISTORY: TRAUMA COMPARISON: None TECHNIQUE: Multiple contiguous axial images were obtained and a CT of the brain without contrast. Sag ittal and coronal reformats were performed. FINDINGS: No evidence of hydrocephalus, intracranial hemorrhage, or extra-axial fluid collection. The brain is normal in morphology. The calvarium is intact. Right periorbital soft tissue swelling. Right orbital floor mildly displaced blowout fracture, and minimally displaced right lateral maxillary sinus wall fracture. Small subperiosteal hematoma along the right inferior orbit measuring 3 mm in thickness. The inferior rectu s muscles is normal in caliber and configuration. Opacification of the right maxillary sinus with some lobulated soft tissue density towards the fracture site and an air-fluid level. The visualized p aranasal sinuses and mastoid air cells are otherwise essentially clear. IMPRESSION: No evidence of acute intracranial abnormality. Right orbital floor blowout fracture with a 3 mm thick subperiosteal hematoma. No findings to suggest herniation of the inferior rectus muscle. Minimally displaced right lateral maxillary sinus wall fracture with air-fluid level within the sinus. THIS REPORT CONTAINS FINDINGS THAT MAY BE CRITICAL TO PATIENT CARE. The findings were verbally commun icated via telephone to Don Villegas on 12/15/2024 6:26 PM. EXAM: CT of the cervical spine without contrast HISTORY: TRAUMA COMPARISON: None TECHNIQUE: Multiple contiguous axial images were obtained in a CT of the cervical spine without contr ast. Sagittal and coronal reformats were performed. FINDINGS: The vertebral bodies demonstrate normal height and alignment. No evidence of acute fracture or subluxation.. Mild degenerative changes are noted throughout the cervical spine, without high-grade canal or foraminal stenosis. No prevertebral soft tissue swelling is seen. The posterior facets are well aligned. Normal alignment of the skull base with the cervical spine is seen. The lung apices are unremarkable. IMPRESSION: No evidence of acute osseous abnormality of the cervical spine.
[2024-12-15] MEDS ORDERED: TDAP (DIPHTH,PERTUSS(ACELL),TET VAC) 0.5 ML VIAL IMVAC ONE (18:37)
--- NOTE | 2024-12-15 19:43 | EDPHYS ---
Physician Documentation [facility] Name: Irina Stringer Age: 88 yrs Sex: Female : 1935 Arrival Date: 12/15/2024 Time: 16:51 Bed IW10 Private MD: ED Physician Don Villegas HPI: 12/15 17:59 This 88 yrs old Female presents to ER via EMS with complaints of Fall Injury. rt 17:59 Patient presents to the ED with a trip and fall. The patient hit the right side of her rt face, sustaining a laceration to the right of the right eye. She does have bruising surrounding that. Denies loss of consciousness, neck pain. She denies other acute complaints at this time, symptoms are moderate in severity, no other aggravating or alleviating factors.. Historical: - Allergies: 16:58 Cipro; me1 16:58 Codeine; me1 - PMHx: 16:58 Congestive heart failure; Hypertensive disorder; aneurysm ascending aorta (Hypertensive me1 disorder); - PSHx: 16:58 aneurysm repair (Hypertensive disorder); Total abdominal hysterectomy; me1 - Immunization history:: Adult Immunizations unknown. - Infectious Disease History:: Denies. - Social history:: Smoking status: Patient/guardian denies using tobacco, but has a distant history of tobacco abuse. - Family history:: not pertinent. ROS: 17:59 Constitutional: Negative for fever, chills, and weight loss, Cardiovascular: Negative rt for chest pain, palpitations, and edema, Respiratory: Negative for shortness of breath, cough, wheezing, and pleuritic chest pain, Abdomen/GI: Negative for abdominal pain, nausea, vomiting, diarrhea, and constipation, MS/Extremity: Negative for injury and deformity, 17:59 Skin: Positive for laceration(s), Contusion, Exam: 18:00 Constitutional: This is a well developed, well nourished patient who is awake, alert, rt and in no acute distress. Chest/axilla: Normal chest wall appearance and motion. Nontender with no deformity. No lesions are appreciated. Cardiovascular: Regular rate and rhythm with a normal S1 and S2. No gallops, murmurs, or rubs. Normal PMI, no JVD. No pulse deficits. Respiratory: Lungs have equal breath sounds bilaterally, clear to auscultation and percussion. No rales, rhonchi or wheezes noted. No increased work of breathing, no retractions or nasal flaring. Abdomen/GI: Soft, non-tender, with normal bowel sounds. No distension or tympany. No guarding or rebound. No evidence of tenderness throughout. Skin: Warm, dry with normal turgor. Normal color with no rashes, no lesions, and no evidence of cellulitis. MS/ Extremity: Pulses equal, no cyanosis. Neurovascular intact. Full, normal range of motion. Neuro: Awake and alert, GCS 15, oriented to person, place, time, and situation. Cranial nerves II-XII grossly intact. Motor strength 5/5 in all extremities. Sensory grossly intact. Cerebellar exam normal. Normal gait. Psych: Awake, alert, with orientation to person, place and time. Behavior, mood, and affect are within normal limits. 18:00 Head/face: Periorbital ecchymosis on the right eye, extraocular muscles are intact, there is a 1 cm laceration just lateral to the eye. No other external signs of trauma. 18:00 Neck: No posterior cervical midline tenderness, Vital Signs: 16:56 BP 179 / 73; Pulse 73; Resp 17; Temp 98.1; Pulse Ox 99% ; Weight 69.85 kg; Height 5 ft. me1 3 in. ; Pain 7/10; 17:00 BP 168 / 59; Pulse 69; Resp 16; Pulse Ox 98% ; me1 18:00 BP 143 / 56; Pulse 71; Resp 17; Pulse Ox 93% on R/A; me1 19:00 BP 154 / 72; Pulse 72; Resp 15; Pulse Ox 98% ; me1 20:00 BP 152 / 61; Pulse 73; Resp 16; Pulse Ox 98% ; me1 21:00 BP 146 / 43; Pulse 71; Resp 15; Pulse Ox 98% ; me1 21:46 BP 151 / 52; Pulse 73; Resp 15; Pulse Ox 99% ; me1 16:56 Body Mass Index 27.28 (69.85 kg, 160.02 cm) me1 16:56 Pain Scale: Adult me1 Laceration: 20:10 Wound Repair of 1cm ( 0.4in ) subcutaneous laceration to right eye. Linear shaped.. rt Distal neuro/vascular/tendon intact. Anesthesia: Local anesthetic administered with 1 mls of 1% lidocaine. Wound prep: Copious irrigation. Skin closed with 3 5-0 Prolene using simple sutures and sterile technique. Patient tolerated well. MDM: 16:56 Medical Screening Exam initiated rt 20:10 Differential diagnosis: Fracture, intracranial hemorrhage, laceration. Data reviewed: rt vital signs, nurses notes. Consideration of Admission/Observation Escalation of care including admission/observation considered. Patient requires transfer to trauma center for complex facial fractures. Management of patient was discussed with the following: Molder Hand: Discussed with accepting facial trauma doc at [facility]. I considered the following discharge prescriptions or medication management in the emergency department Medications were administered in the Emergency Department. See MAR. Independent interpretation of the following test(s) in the Emergency Department CT Scan: My interpretation is No intracranial hemorrhage seen on interpretation of CT scan images. Care significantly affected by the following chronic conditions: Congestive Heart Failure. Counseling: I had a detailed discussion with the patient and/or guardian regarding the historical points, exam findings, and any diagnostic results supporting the discharge/admit diagnosis, radiology results, the need to transfer to another facility. Response to treatment: the patient's symptoms have markedly improved after treatment. 12/15 16:55 Order name: CT Head C Spine; Complete Time: 18:35 rt 12/15 16:55 Order name: Dressing - Wound; Complete Time: 17:10 rt 12/15 16:55 Order name: Gloves, Sterile; Complete Time: 17:10 rt 12/15 16:55 Order name: Setup Suture Tray; Complete Time: 17:10 rt Administered Medications: 17:10 Drug: Acetaminophen PO 325 mg PO once Route: PO; me1 18:41 Follow up: Response: No adverse reaction; Pain is decreased me1 18:42 Drug: Boostrix Tdap IM 0.5 ml IM once; as a single dose Route: IM; Site: left deltoid; me1 19:01 Follow up: Response: No adverse reaction me1 19:01 Drug: Lidocaine Infiltration (1 %) 5 ml 5 ml Infiltration once; to bedside {Note: me1 Administered by Dr Villegas.} Volume: 5 ml; Route: Infiltration; 19:20 Follow up: Response: No adverse reaction; Pain is decreased me1 20:42 Drug: Clindamycin IVPB 300 mg IVPB once over 30 mins; (mix in 50 mL) Route: IVPB; jb4 Infused Over: 30 mins; Site: right antecubital; 21:40 Follow up: Response: No adverse reaction; IV Status: Completed infusion me1 Disposition Summary: 12/15/24 19:42 Transfer Ordered Notes: Transfer Location: [facility] rt Reason: Higher level of care rt Condition: Stable rt Problem: new rt Symptoms: are unchanged rt Accepting Physician: (12/15/24 22:09) ha1 Diagnosis - Right orbital floor blowout fracture with hematoma rt - Right maxillary sinus fracture rt - Facial laceration rt Forms: - Medication Reconciliation Form rt - SBAR form rt Signatures: Dispatcher [employer] EDIsaias Olivares RN RN jb4 Dayanna Sexton RN RN ha1 Don Villegas MD MD rt Montse Bland RN RN me1 Corrections: (The following items were deleted from the chart) 22: 19:42 rt 1
--- NOTE | 2024-12-15 19:43 | ER ---
Nurse's Notes [facility] Name: Irina Stringer Age: 88 yrs Sex: Female : 1935 Arrival Date: 12/15/2024 Time: 16:51 Bed IW10 Private MD: Diagnosis: Right orbital floor blowout fracture with hematoma;Right maxillary sinus fracture;Facial laceration Presentation: 12/15 16:56 Chief complaint: EMS states: toned out for fall. Patient tripped and fell hitting her me1 right face on the floor. Right eye is bruised and swollen with a small laceration to lateral to right eye. No LOC. C Collar in place. Coronavirus screen: Vaccine status: Patient reports receiving the 2nd dose of the covid vaccine. Ebola Screen: No symptoms or risks identified at this time. Initial Sepsis Screen: Does the patient meet any 2 criteria? No. Patient's initial sepsis screen is negative. Does the patient have a suspected source of infection? No. Patient's initial sepsis screen is negative. Risk Assessment: Do you want to hurt yourself or someone else? Patient reports no desire to harm self or others. Onset of symptoms was December 15, 2024 at 16:15. 16:56 Method Of Arrival: [place] [facility] [place] Acuity: SABRINA 3 me1 Triage Assessment: 16:58 General: Appears uncomfortable, well groomed, well developed, well nourished, Behavior me1 is calm, cooperative, appropriate for age. Pain: Complains of pain in head and back of neck Pain does not radiate. Pain currently is 7 out of 10 on a pain scale. Quality of pain is described as aching, Pain began suddenly, Is continuous. EENT: Eyes bruising and swelling w/small laceration to right eye. Neuro: Level of Consciousness is awake, alert, obeys commands, Oriented to person, place, time, situation, Appropriate for age Reports headache. Cardiovascular: Patient's skin is warm and dry. Respiratory: Airway is patent Respiratory effort is even, unlabored, Respiratory pattern is regular, symmetrical. GI: No signs and/or symptoms were reported involving the gastrointestinal system. : No signs and/or symptoms were reported regarding the genitourinary system. Derm: Bruising that is dark purple, on right eye. Musculoskeletal: cast to right forearm. Injury Description: trip and fall, hitting face on floor. Historical: - Allergies: 16:58 Cipro; me1 16:58 Codeine; me1 - PMHx: 16:58 Congestive heart failure; Hypertensive disorder; aneurysm ascending aorta (Hypertensive me1 disorder); - PSHx: 16:58 aneurysm repair (Hypertensive disorder); Total abdominal hysterectomy; me1 - Immunization history:: Adult Immunizations unknown. - Infectious Disease History:: Denies. - Social history:: Smoking status: Patient/guardian denies using tobacco, but has a distant history of tobacco abuse. - Family history:: not pertinent. Screenin:01 [facility] ED Fall Risk Assessment (Adult) History of falling in the last 3 months, me1 including since admission Yes- single mechanical fall (1 pt) Confusion or Disorientation No (0 pts) Intoxicated or Sedated No (0 pts) Impaired Gait No (0 pts) Mobility Assist Device Used No (0 pt) Altered Elimination No (0 pt) Score/Fall Risk Level 0 - 2 = Low Risk Maintained a safe environment, Provided non-skid footwear, Hourly rounding (assess needs \T\ fall precautionary measures) done. Abuse screen: Denies threats or abuse. Nutritional screening: No deficits noted. Tuberculosis screening: No symptoms or risk factors identified. Assessment: 17:01 General: See triage assessment.. me1 20:50 Reassessment: Patient and/or family updated on plan of care and expected duration. Pain ha1 level reassessed. Patient is alert, oriented x 3, equal unlabored respirations, skin warm/dry/pink. 21:08 Reassessment: nurse to nurse report given to RAMESH Mckinley. ha1 Vital Signs: 16:56 BP 179 / 73; Pulse 73; Resp 17; Temp 98.1; Pulse Ox 99% ; Weight 69.85 kg; Height 5 ft. me1 3 in. ; Pain 7/10; 17:00 BP 168 / 59; Pulse 69; Resp 16; Pulse Ox 98% ; me1 18:00 BP 143 / 56; Pulse 71; Resp 17; Pulse Ox 93% on R/A; me1 19:00 BP 154 / 72; Pulse 72; Resp 15; Pulse Ox 98% ; me1 20:00 BP 152 / 61; Pulse 73; Resp 16; Pulse Ox 98% ; me1 21:00 BP 146 / 43; Pulse 71; Resp 15; Pulse Ox 98% ; me1 21:46 BP 151 / 52; Pulse 73; Resp 15; Pulse Ox 99% ; me1 16:56 Body Mass Index 27.28 (69.85 kg, 160.02 cm) me1 16:56 Pain Scale: Adult me1 ED Course: 16:55 Patient arrived in ED. me1 16:55 Don Villegas MD is Attending Physician. rt 16:58 Triage completed. me1 16:58 Arm band placed on Patient placed in an exam room. me1 17:01 Patient has correct armband on for positive identification. Bed in low position. Call me1 light in reach. Side rails up X2. Provided Education on: POC. Verbalized understanding.. Client placed on continuous cardiac and pulse oximetry monitoring. NIBP monitoring applied. Pulse ox on. NIBP on. 17:01 No provider procedures requiring assistance completed. Patient did not have IV access me1 during this emergency room visit. 17:04 Montse Bland, RAMESH is Primary Nurse. me1 17:22 CT Head C Spine In Process Unspecified. EDMS 20:40 Inserted saline lock: 20 gauge in right antecubital area, using aseptic technique. me1 Administered Medications: 17:10 Drug: Acetaminophen PO 325 mg PO once Route: PO; me1 18:41 Follow up: Response: No adverse reaction; Pain is decreased me1 18:42 Drug: Boostrix Tdap IM 0.5 ml IM once; as a single dose Route: IM; Site: left deltoid; me1 19:01 Follow up: Response: No adverse reaction me1 19:01 Drug: Lidocaine Infiltration (1 %) 5 ml 5 ml Infiltration once; to bedside {Note: me1 Administered by Dr Villegas.} Volume: 5 ml; Route: Infiltration; 19:20 Follow up: Response: No adverse reaction; Pain is decreased me1 20:42 Drug: Clindamycin IVPB 300 mg IVPB once over 30 mins; (mix in 50 mL) Route: IVPB; jb4 Infused Over: 30 mins; Site: right antecubital; 21:40 Follow up: Response: No adverse reaction; IV Status: Completed infusion me1 Medication: 17:01 Vaccine Information Statement (VIS) provided today. Questions and/or concerns me1 addressed. VIS edition date: June 22, 2021. Outcome: 19:42 ER care complete, transfer ordered by . rt 21:47 Transferred by ground EMS to [facility], Transfer form completed. Note: me1 Report called by RAMESH Myers 21:47 Condition: stable 21:47 Instructed on the need for transfer, 22:09 Patient left the ED. ha1 Signatures: Dispatcher [employer] EDIsaias Olivares RN RN jb4 Dayanna Sexton RN RN ha1 Don Villegas MD MD rt Montse Bland RN RN me1
[2024-12-15] MEDS ORDERED: CLINDAMYCIN 600MG/D5W 50 ML IV ONE (19:50)
[2024-12-16 06:56] VITALS: TEMP 98.1
[2024-12-16 07:02] VITALS: BP 151/52; O2SAT 99
== END 2024-12-15 22:09 | disposition short-term general hospital (02) ==
LOC: ER 16:51
DX: S02.31XA Fracture of orbital floor, right side, initial encounter for closed fracture (principal); S02.40CA Maxillary fracture, right side, initial encounter for closed fracture; W01.0XXA Fall on same level from slipping, tripping and stumbling without subsequent striking against object, initial encounter
CPT/HCPCS: 70450; 72125; J2003

== ENCOUNTER 2024-12-23 10:03 | Emergency (ER) | payer BC ==
--- NOTE | 2024-12-23 10:28 | EDPHYS ---
Physician Documentation [facility] Name: Irina Stringer Age: 88 yrs Sex: Female : 1935 Arrival Date: 12/23/2024 Time: 10:03 Bed IW5 Private MD: ED Physician Melquiades Avalos HPI: 12/23 10:28 This 88 yrs old Female presents to ER via Unassigned with complaints of Suture Removal. ms3 10:29 88-year-old female presents to the emergency department for suture removal. Patient ms3 states she had a fall on December 15, 2019 5 and 3 sutures were placed in her right eyelid. Patient denies erythema, pain, drainage from laceration site.. Historical: - Allergies: 10:29 Cipro; jl7 10:29 Codeine; jl7 - PMHx: 10:29 aneurysm ascending aorta (Hypertensive disord); Congestive heart failure; Hypertensive jl7 disorder; - PSHx: 10:29 aneurysm repair (en); Total abdominal hysterectomy; jl7 - Immunization history:: Adult Immunizations up to date. - Infectious Disease History:: Denies. - Social history:: Smoking status: Patient denies any tobacco usage or history of. ROS: 10:29 Constitutional: Negative for fever, and chills. Cardiovascular: Negative for chest ms3 pain, and palpitations. Respiratory: Negative for shortness of breath, cough, wheezing, and pleuritic chest pain, Abdomen/GI: Negative for abdominal pain, nausea, vomiting, diarrhea, and constipation, 10:29 Skin: Positive for Healing laceration with [address], Exam: 10:29 Constitutional: This is a well developed, well nourished patient who is awake, alert, ms3 and in no acute distress. Cardiovascular: Regular rate and rhythm with a normal S1 and S2. No gallops, murmurs, or rubs. Normal PMI, no JVD. No pulse deficits. Respiratory: Lungs have equal breath sounds bilaterally, clear to auscultation and percussion. No rales, rhonchi or wheezes noted. No increased work of breathing, no retractions or nasal flaring. Abdomen/GI: Soft, non-tender, with normal bowel sounds. No distension or tympany. No guarding or rebound. No evidence of tenderness throughout. 10:29 Skin: injury, laceration(s), the wound is approximately 2 cm(s), of the Right eyelid healing wound, Vital Signs: 10:29 Pulse 64; Resp 17; Temp 97.1; Pulse Ox 100% ; Weight 70.31 kg; Height 5 ft. 3 in. ; jl7 Pain 0/10; 10:29 Body Mass Index 27.46 (70.31 kg, 160.02 cm) jl7 10:29 Pain Scale: Adult jl7 MDM: 10:27 Medical Screening Exam initiated ms3 10:29 Counseling: I had a detailed discussion with the patient and/or guardian regarding the ms3 historical points, exam findings, and any diagnostic results supporting the discharge/admit diagnosis, the need for outpatient follow up, to return to the emergency department if symptoms worsen or persist or if there are any questions or concerns that arise at home. Special discussion: I discussed with the patient/guardian in detail that at this point there is no indication for admission to the hospital. It is understood, however, that if the symptoms persist or worsen the patient needs to return immediately for re-evaluation. ED course: 3 Prolene sutures removed from right eyelid. Patient to follow-up with primary care physician as needed. Patient and her son understand agree with plan. All questions were answered. Return precautions discussed include worsening symptoms, or any other concerns. 10:29 Data reviewed: vital signs, nurses notes, and as a result, I will discharge patient. ms3 Administered Medications: No medications were administered Disposition Summary: 12/23/24 10:27 Discharge Ordered Notes: Location: Home ms3 Condition: Stable ms3 Diagnosis - Encounter for removal of sutures ms3 Followup: ms3 - With: Private Physician - When: 2 - 3 days - Reason: Recheck today's complaints Discharge Instructions: - Discharge Summary Sheet ms3 - Suture Removal, Care After ms3 Forms: - Medication Reconciliation Form ms3 - Antibiotic Education ms3 - Prescription Opioid Use ms3 - Patient Portal Instructions ms3 - Leadership Thank You Letter ms3 Signatures: Neil Ott RN RN jl7 Melquiades Avalos DO DO ms3
--- NOTE | 2024-12-23 10:57 | ER ---
Nurse's Notes [facility] Name: Irina Stringer Age: 88 yrs Sex: Female : 1935 Arrival Date: 12/23/2024 Time: 10:03 Bed IW5 Private MD: Diagnosis: Encounter for removal of sutures Presentation: 12/23 10:29 Chief complaint: Patient states: Here for suture removal. Coronavirus screen: At this jl7 time, the client does not indicate any symptoms associated with coronavirus-19. Ebola Screen: No symptoms or risks identified at this time. Initial Sepsis Screen: Does the patient meet any 2 criteria? No. Patient's initial sepsis screen is negative. Does the patient have a suspected source of infection? No. Patient's initial sepsis screen is negative. Risk Assessment: Do you want to hurt yourself or someone else? Patient reports no desire to harm self or others. Onset of symptoms is unknown. 10:29 Method Of Arrival: Ambulatory jl7 10:29 Acuity: SABRINA 5 jl7 Triage Assessment: 10:29 General: Appears in no apparent distress. uncomfortable, Behavior is calm, cooperative, jl7 appropriate for age. Pain: Denies pain. Historical: - Allergies: 10:29 Cipro; jl7 10:29 Codeine; jl7 - PMHx: 10:29 aneurysm ascending aorta (Hypertensive disord); Congestive heart failure; Hypertensive jl7 disorder; - PSHx: 10:29 aneurysm repair (en); Total abdominal hysterectomy; jl7 - Immunization history:: Adult Immunizations up to date. - Infectious Disease History:: Denies. - Social history:: Smoking status: Patient denies any tobacco usage or history of. Vital Signs: 10:29 Pulse 64; Resp 17; Temp 97.1; Pulse Ox 100% ; Weight 70.31 kg; Height 5 ft. 3 in. ; jl7 Pain 0/10; 10:29 Body Mass Index 27.46 (70.31 kg, 160.02 cm) jl7 10:29 Pain Scale: Adult jl7 ED Course: 10:04 Patient arrived in ED. im 10:05 Melquiades Avalos DO is Attending Physician. ms3 10:29 Triage completed. jl7 10:29 Arm band placed on right wrist. jl7 10:56 No provider procedures requiring assistance completed. Patient did not have IV access jl7 during this emergency room visit. Administered Medications: No medications were administered Outcome: 10:27 Discharge ordered by . ms3 10:56 Discharged to home ambulatory, jl7 10:56 Condition: stable 10:56 Discharge instructions given to patient, Instructed on discharge instructions, follow up and referral plans. Demonstrated understanding of instructions, follow-up care, 10:57 Patient left the ED. jl7 Signatures: Neil Ott RN RN jl7 Melquiades Avalos DO DO ms3 Sonia Majano
[2024-12-23 11:17] VITALS: TEMP 97.1; O2SAT 100
== END 2024-12-23 10:57 | disposition home or self-care (01) ==
LOC: ER 10:03
DX: Z48.02 Encounter for removal of sutures (principal)
CPT/HCPCS: 99282